=== PATIENT | female | born 1975 | race Two or more races ===

== ENCOUNTER 2022-10-31 14:45 | Emergency (ER) | payer BC ==
[~2022-10-31] VITALS: Ht 269.2 cm; Wt 74.8 kg
== END 2022-10-31 19:08 | disposition home or self-care (01) ==
LOC: ER 14:45
DX: K52.9 Noninfective gastroenteritis and colitis, unspecified (principal)

== ENCOUNTER 2025-02-19 19:42 | Emergency (ER) | payer OTHER ==
[~2025-02-19] VITALS: Ht 167.6 cm; Wt 79.4 kg
[2025-02-19] MEDS ORDERED: METHYLPREDNISOLONE SOD SUCC 125 MG VIAL ONE (20:30)
[2025-02-19] MEDS ORDERED: METHYLPREDNISOLONE SOD SUCC 125 MG VIAL IV ONE (20:30)
[2025-02-19] MEDS ORDERED: 0.9 % SODIUM CHLORIDE 1,000 ML IV ONE (20:30)
[2025-02-19] MEDS ORDERED: DIPHENHYDRAMINE HCL 50 MG/ML VIAL 1ML ONE (20:30)
[2025-02-19] MEDS ORDERED: DIPHENHYDRAMINE HCL 50 MG/ML VIAL 1ML IV ONE (20:30)
[2025-02-19 21:27] LABS: BASO % 0.4 % (0.1-1.2); EOS # 0.12 (0.04-0.54); EOS % 1.1 % (0.7-7.0); HEMATOCRIT 38.6 % (34.1-44.9); HEMOGLOBIN 12.9 g/dL (11.2-15.7); LYMPH # 1.69 (1.18-3.74); LYMPH % 16.1 % (19.3-53.1); MEAN CORPUSCULAR HEMOGLOBIN 26.1 pg (25.6-32.2); MONO % 4.8 % (4.7-12.5); NEUT # 8.14 (1.56-6.13); NEUT % 77.3 % (34.0-71.1); PLATELET COUNT 282 K/uL (163-369); RED BLOOD COUNT 4.94 M/uL (3.93-5.22); RED CELL DISTRIBUTION WIDTH 14.1 % (11.6-14.4)
[2025-02-19 22:08] LABS: ALBUMIN 3.6 gm/dL (3.4-5.0); BILIRUBIN TOTAL 0.44 mg/dL (0.3-1.2); CREATININE SERUM 0.79 mg/dL (0.55-1.02); GFR 77.35; GLOBULINA 4.2 G/DL (2.4-3.5); POTASSIUM 3.99 mEq/L (3.5-5.1); TOTAL PROTEIN 7.8 gm/dL (6.4-8.2)
[2025-02-19 23:10] LABS: PH,URINE 5.5 (5.0-8.0); URINE APPEARANCE Cloudy; URINE BILIRRUBIN Negative (NEGATIVE); URINE BLOOD Moderate; URINE COLOR Yellow; URINE GLUCOSE Negative (NEGATIVE); URINE KETONE Negative (NEGATIVE); URINE LEUKOCYTE Large; URINE NITRATE Negative; URINE PROTEIN Negative (NEGATIVE); URINE UROBILINOGEN 0.2 E.U./dl
[2025-02-19 23:13] LABS: URINE BACTERIA 1108.8 uL (0.0-1933); URINE EPITHELIAL CELLS 27.7 uL (0.0-38.8); URINE RBC 16.9 uL (0.0-20.8); URINE WBC 1322.6 uL (0.0-23.2)
[2025-02-19 23:14] LABS: URINE CAST 0.29 uL (0.0-1.40)
[2025-02-19] MEDS ORDERED: PEPCID AC20 MG PO (23:27)
[2025-02-19] MEDS ORDERED: MEDROLPACK PO (23:27)
[2025-02-19] MEDS ORDERED: BENADRYL ALLERG25 MG PO (23:27)
[2025-02-19] MEDS ORDERED: PYRIDIUM DS200 MG PO (23:27)
[2025-02-19] MEDS ORDERED: BACTRIM DS TAB1 EACH PO (23:27)
== END 2025-02-19 23:37 | disposition home or self-care (01) ==
LOC: ER 20:02
PROVIDERS: General Practice
DX: T78.40XA Allergy, unspecified, initial encounter (principal); N39.0 Urinary tract infection, site not specified; R21 Rash and other nonspecific skin eruption; Z88.3 Allergy status to other anti-infective agents